=== PATIENT | male | born 1980 | race Caucasian/White ===

== ENCOUNTER 2018-07-25 09:58 | Emergency (ER) | payer BC ==
[~2018-07-25] VITALS: Ht 177.8 cm; Wt 154.2 kg
[2018-07-25 10:36] VITALS: BP 165/79
[2018-07-25] MEDS ORDERED: NORCO 7.5MG PO STA (10:47)
[2018-07-25] MEDS ORDERED: NORCO 7.5MG PO ONE (10:48)
--- NOTE | 2018-07-25 10:54 | ER.PDOC ---
General Chief Complaint: General Complaint Stated Complaint: KNOT BACK NECK Time seen by MD: 10:48 Source: patient Exam Limitations: no limitations History of Present Illness Initial Comments Painful swelling behind neck for 5 days. Severity: moderate Quality: painful Allergies: Coded Allergies: No Known Allergies (Unverified , 07/25/18) Past Medical History Medical History: hypertension Surgical History: no surgical history Social History Smoking: less than 1 pack/day Alcohol Use: occassionally Drug Use: none Constitutional: no symptoms reported EENTM: no symptoms reported Respiratory: no symptoms reported Cardiovascular: no symptoms reported Gastrointestinal: no symptoms reported Skin: see HPI All Other Systems: Reviewed and Negative Physical Exam General Appearance: alert, no distress Skin: abscess, tender indurated area Location: neck (posterior) With: tenderness, swelling EENT: eyes nml inspection, lips/gums nml, pharynx nml Respiratory: no resp. distress, breath sounds nml CVS: reg. rate & rhythm, heart sounds nml Abdomen: non-tender, no organomegaly NEURO/PSYCH: oriented x 3, CN's nml as tested, motor nml, sensation nml, mood/ affect nml Incision and Drainage Incision and Drainage : Site: posterior neck Blade Size: 11 I & D Procedure: probe/break up loculation, irrigated cavity w/saline, culture/gram stain Departure Time of Disposition: 10:49 Disposition: 01 HOME, SELF-CARE Impression: Primary Impression: Abscess Condition: Stable Referrals: PCP,UNKNOWN (PCP) PRIMARY CARE PROVIDER Additional Instructions: Tramadol Bactrim DS Return tomorrow for dressing change. Duration or Time Spent with Pa: 60 mins OTONIEL VERA MD Jul 25, 2018 10:54
[2018-07-25 11:04] VITALS: BP 136/87
[2018-07-25 11:10] VITALS: BP 136/87
== END 2018-07-25 11:04 | disposition home or self-care (01) ==
LOC: ER 09:58
DX: L02.11 Cutaneous abscess of neck (principal); F17.210 Nicotine dependence, cigarettes, uncomplicated; I10 Essential (primary) hypertension
CPT/HCPCS: 10060; 87070; 99283

== ENCOUNTER 2018-07-26 06:46 | Emergency (ER) | payer BC ==
[~2018-07-26] VITALS: Ht 177.8 cm; Wt 176.9 kg
[2018-07-26 07:07] VITALS: BP 127/78
--- NOTE | 2018-07-26 07:09 | ER.PDOC ---
General Chief Complaint: Requesting Medical Care Stated Complaint: WOUND RECHECK Time seen by MD: 07:02 Source: patient Exam Limitations: no limitations History of Present Illness Initial Procedure Done In ER: Yes Treated In Another ED/Practice: No Previous ED Treatment: I&D of abscess Antobiotics Given: prescription Symptoms Since Procedure: no complaints Allergies: Coded Allergies: No Known Allergies (Unverified , 07/25/18) Past Medical History Surgical History: no surgical history Social History Drug Use: none Constitutional: no symptoms reported EENTM: no symptoms reported Respiratory: no symptoms reported Cardiovascular: no symptoms reported Skin: see HPI All Other Systems: Reviewed and Negative Physical Exam General Appearance: alert, no distress Neuro/Vascular/Tendon: no vascular compromise, sensation nml, no tendon injury , nml ROM Skin: healing wound, healing abscess Head/ENT: nml inspection, pharynx nml Neck/Back: nml inspection, non-tender, painless ROM Respiratory: chest non-tender, no resp. distress, breath sounds nml CVS: reg. rate & rhythm, heart sounds nml Abdomen: non-tender, no organomegaly Departure Time of Disposition: 07:12 Disposition: 01 HOME, SELF-CARE Impression: Primary Impression: Wound check, abscess Condition: Stable Patient Instructions: Wound Check Referrals: PCP,UNKNOWN (PCP) PRIMARY CARE PROVIDER Duration or Time Spent with Pa: BART LAGOS MD Jul 26, 2018 07:09
[2018-07-26 07:28] VITALS: BP 127/78
== END 2018-07-26 07:25 | disposition home or self-care (01) ==
LOC: ER 06:46
DX: L02.11 Cutaneous abscess of neck (principal)
CPT/HCPCS: 99281; 99282

== ENCOUNTER 2018-07-27 06:43 | Emergency (ER) | payer BC ==
[~2018-07-27] VITALS: Ht 175.3 cm; Wt 181.4 kg
--- NOTE | 2018-07-27 06:45 | NUR ---
ARRIVAL PATIENT BACK FOR WOUND REPACKING PER DR ORDER. WOUND REDONE, NO S/S OF DISTRESS.
--- NOTE | 2018-07-27 06:55 | ER.PDOC ---
General Chief Complaint: Requesting Medical Care Stated Complaint: WOUND CARE Time seen by MD: 06:53 Source: patient Exam Limitations: no limitations History of Present Illness Initial Procedure Done In ER: yes Treated In Another ED/Practice: No Previous ED Treatment: I&D of abscess Antobiotics Given: prescription Symptoms Since Procedure: no complaints Allergies: Coded Allergies: No Known Allergies (Unverified , 07/25/18) Past Medical History Surgical History: no surgical history Social History Drug Use: none Skin: see HPI All Other Systems: Reviewed and Negative Physical Exam General Appearance: alert, no distress Neuro/Vascular/Tendon: no vascular compromise, sensation nml, no tendon injury , nml ROM Skin: healing abscess Head/ENT: nml inspection, pharynx nml Neck/Back: nml inspection, non-tender, painless ROM Respiratory: chest non-tender, no resp. distress, breath sounds nml CVS: reg. rate & rhythm, heart sounds nml Abdomen: non-tender, no organomegaly Departure Time of Disposition: 06:53 Disposition: 01 HOME, SELF-CARE Impression: Primary Impression: Wound check, abscess Condition: Stable Patient Instructions: Wound Check Referrals: PCP,UNKNOWN (PCP) PRIMARY CARE PROVIDER Duration or Time Spent with Pa: BART HERNANDEZ MD Jul 27, 2018 06:55
[2018-07-27 07:15] VITALS: BP 155/87
== END 2018-07-27 07:10 | disposition home or self-care (01) ==
LOC: ER 06:43
DX: L02.91 Cutaneous abscess, unspecified (principal)
CPT/HCPCS: 99282; 99283

== ENCOUNTER 2018-07-28 06:35 | Emergency (ER) | payer BC ==
[~2018-07-28] VITALS: Ht 175.3 cm; Wt 181.4 kg
[2018-07-28 06:52] VITALS: BP 165/89
[2018-07-28] MEDS ORDERED: TRIPLE ANTIBIOTIC OINTMENT TP ONE (07:19)
--- NOTE | 2018-07-28 07:33 | ER.PDOC ---
General Chief Complaint: Wound Recheck/Suture Removal Stated Complaint: WOUND CARE Time seen by MD: 07:28 Source: patient Exam Limitations: no limitations History of Present Illness Initial Procedure Done In ER: Incision and drainage Days Prior To Arrival: 4 Previous ED Treatment: I&D of abscess Antobiotics Given: prescription Symptoms Since Procedure: no complaints Allergies: Coded Allergies: No Known Allergies (Unverified , 07/25/18) Past Medical History Medical History: hypertension Surgical History: no surgical history Social History Smoking: greater than 1 pack/day Alcohol Use: occassionally Drug Use: none Constitutional: no symptoms reported EENTM: no symptoms reported Respiratory: no symptoms reported Cardiovascular: no symptoms reported Gastrointestinal: no symptoms reported Skin: see HPI All Other Systems: Reviewed and Negative Physical Exam General Appearance: alert, no distress Neuro/Vascular/Tendon: no vascular compromise, sensation nml, no tendon injury , nml ROM Skin: healing abscess Head/ENT: nml inspection, pharynx nml Neck/Back: nml inspection, non-tender, painless ROM Respiratory: chest non-tender, no resp. distress, breath sounds nml CVS: reg. rate & rhythm, heart sounds nml Abdomen: non-tender, no organomegaly Progress Progress Wound flushed and redressed without packing. Departure Time of Disposition: 07:30 Disposition: 01 HOME, SELF-CARE Impression: Primary Impression: Encounter for wound re-check Condition: Improved Referrals: PCP,UNKNOWN (PCP) PRIMARY CARE PROVIDER Additional Instructions: Clean wound daily with soap and water and apply Neosporin Continue and complete antibiotics F/U with your PCP next week Duration or Time Spent with Pa: 20 mins OTONIEL VERA MD Jul 28, 2018 07:32
[2018-07-28 07:39] VITALS: BP 165/89
== END 2018-07-28 07:37 | disposition home or self-care (01) ==
LOC: ER 06:35
DX: L02.11 Cutaneous abscess of neck (principal); I10 Essential (primary) hypertension; F17.210 Nicotine dependence, cigarettes, uncomplicated
CPT/HCPCS: 99283